=== PATIENT | male | born 1950 | race Caucasian/White ===

== ENCOUNTER → 2025-03-05 | Day surgery (SDC) | payer MEDICARE ==
[~2025-03-05] MED LIST: Lidocaine 1% (PF) 30 ML VIAL ONE; PROPOFOL 200 MG/20 ML VIAL ONE
[2025-03-05 07:30] VITALS: BP 122/57; TEMP 98.4
== END ==
LOC: CSHSDC 06:44
PROVIDERS: ATTEND Specialist
PROC: B24BZZ4 Ultrasonography of Heart with Aorta, Transesophageal (ICD-10-PCS; principal; 2025-03-05)
DX: I35.0 Nonrheumatic aortic (valve) stenosis (principal); I48.0 Paroxysmal atrial fibrillation; E78.5 Hyperlipidemia, unspecified; Z86.73 Personal history of transient ischemic attack (TIA), and cerebral infarction without residual deficits; Z79.82 Long term (current) use of aspirin; Z79.899 Other long term (current) drug therapy
CPT/HCPCS: 93005; 93312; J2704